=== PATIENT | female | born 1975 | race Caucasian/White ===

== ENCOUNTER 2016-04-28 17:30 | Emergency (ER) | payer OTHER ==
[2016-04-28 17:51] LABS: BILIRUBIN NEGATIVE (NEGATIVE); BLOOD NEGATIVE Ery/uL (NEGATIVE); COLOR ORANGE (YELLOW); GLUCOSE (U) 1+ mg/dL (NORMAL); KETONE (U) NEGATIVE (NEGATIVE); LEUKOCYTES NEGATIVE Leu/uL (NEGATIVE); NITRITE POSITIVE (NEGATIVE); PROTEIN 2+ mg/dL (NEGATIVE); SPECIFIC GRAVITY 1.025 (1.001-1.030); UROBILINOGEN >=8.0 mg/dL (0.2-1.0)
[2016-04-28 17:54] LABS: CLARITY CLEAR (CLEAR)
[2016-04-28 17:56] LABS: BACTERIA TRACE; SQUAMOUS EPITHELIAL CELLS 20-50
== END 2016-04-28 20:38 | disposition home or self-care (01) ==
LOC: FER 17:30
PROVIDERS: Internal Medicine
DX: N39.0 Urinary tract infection, site not specified (principal); Z87.440 Personal history of urinary (tract) infections; Z87.442 Personal history of urinary calculi; Z88.6 Allergy status to analgesic agent
CPT/HCPCS: 81001

== ENCOUNTER 2016-05-03 04:55 | Emergency (ER) | payer OTHER ==
[2016-05-03 05:55] LABS: BILIRUBIN NEGATIVE (NEGATIVE); BLOOD NEGATIVE Ery/uL (NEGATIVE); CLARITY CLEAR (CLEAR); COLOR YELLOW (YELLOW); GLUCOSE (U) NORMAL (NORMAL); KETONE (U) NEGATIVE (NEGATIVE); LEUKOCYTES NEGATIVE Leu/uL (NEGATIVE); NITRITE NEGATIVE (NEGATIVE); PROTEIN NEGATIVE (NEGATIVE); SPECIFIC GRAVITY >=1.030 (1.001-1.030); UROBILINOGEN 0.2 mg/dL (0.2-1.0); pH 5.5 (5.0-9.0)
== END 2016-05-03 06:47 | disposition home or self-care (01) ==
LOC: FER 04:55
PROVIDERS: Emergency Medicine
DX: Z87.442 Personal history of urinary calculi (principal); Z88.0 Allergy status to penicillin
CPT/HCPCS: 81003; J1885

== ENCOUNTER 2020-12-11 21:46 | Emergency (ER) | payer OTHER ==
[~2020-12-11 21:46] MED LIST: ATARAX25 MG PO; CELEXA40 MG PO; VOLTAREN **OUT50 MG PO; ZYRTEC10 M3 PO
[2020-12-11 22:13] LABS: HCT 39.1 % (37.0-47.0); HGB 12.6 g/dl (12.5-16.0); MCH 25.9 pg (25.0-31.0); MCHC 32.2 g/dL (32.0-36.0); MCV 80.5 fL (78.0-100.0); MPV 9.9 fL (6.0-9.5); RBC 4.86 M/uL (4.20-5.40); RDW 14.5 % (11.5-14.0)
[2020-12-11 22:26] LABS: BUN/CREAT RATIO (CALC) 9.7 RATIO; CREATININE 0.93 mg/dL (0.51-0.95)
[2020-12-11] MEDS ORDERED: EPIPEN 2-P0.3 MG/0.3 IM (23:06)
[2020-12-11] MEDS ORDERED: MEDROL 4MG DOSEP4 MG PO (23:06)
== END 2020-12-12 00:28 | disposition home or self-care (01) ==
LOC: FER 21:46
PROVIDERS: Emergency Medicine
DX: T78.40XA Allergy, unspecified, initial encounter (principal); R07.89 Other chest pain; Z88.0 Allergy status to penicillin
CPT/HCPCS: 36415; 71045; 80048; 84484; 93005; 96372; J0171; J1200; J2930